=== PATIENT | male | born 1990 | race Hispanic/Latino ===

== ENCOUNTER 2019-09-04 11:31 | Inpatient (IN) | payer SELFPAY ==
[2019-09-04] MEDS ORDERED: ISOVUE-370 76%-LOCM 1 ML ONE (11:40)
[2019-09-04] MEDS ORDERED: Ondansetron PF 4 MG/2 ML Vial ONE (11:50)
[2019-09-04] MEDS ORDERED: Fentanyl 100 MCG/2 ML VIAL ONE ×2 (11:50→12:20)
--- NOTE | 2019-09-04 11:53 | RAD ---
EXAM: Single view of the chest HISTORY: Chest pain COMPARISON: None FINDINGS: Single view of the chest shows a normal sized cardiomediastinal silhouette. There is mild bilateral hilar fullness. There is no evidence of consolidation, mass, or pleural effusion. The bones are unremarkable. IMPRESSION: Bilateral hilar fullness may be secondary to an atypical infection or prominent pulmonary vasculature.
[2019-09-04] MEDS ORDERED: Lidocaine 1% w/Epinephrine 1:100K 20 ML VIAL ONE (11:54)
[2019-09-04 11:58] LABS: Hemoglobin 15.5 g/dL (14.0-18.0); Mean Corpuscular Hemoglobin 32.4 pg (27.0-31.0); Mean Platelet Volume 7.3 fL (7.4-10.4); Platelet Count 293 thou/uL (130-400); RBC Distribution Width 11.7 % (11.5-14.5); Red Blood Cell (RBC) Count 4.77 mill/uL (4.70-6.10); White Blood Cell (WBC) Count 32.3 thou/uL (4.8-10.8)
--- NOTE | 2019-09-04 12:01 | CT ---
EXAM: CT brain without contrast HISTORY: Fall from platform with head trauma COMPARISON: None TECHNIQUE: Multiple contiguous axial images were obtained and a CT of the brain without contrast. FINDINGS: The brain is normal in morphology and attenuation without focal lesions or confluent areas of infarction. There is no evidence of hydrocephalus, intracranial hemorrhage, or extra-axial fluid collection. The calvarium and overlying soft tissues are unremarkable. The visualized paranasal sinuses and masto id air cells are well aerated. IMPRESSION: No evidence of acute intracranial abnormality Dr. Rivera notified of the findings at 11:58 AM on 09/04/2019.
--- NOTE | 2019-09-04 12:03 | CT ---
EXAM: CT of the cervical spine without contrast HISTORY: Neck pain after falling from a platform. COMPARISON: None TECHNIQUE: Multiple contiguous axial images were obtained in a CT of the cervical spine without contr ast. Sagittal and coronal reformats were performed. FINDINGS: The vertebral bodies and intervertebral discs demonstrate normal height and alignment witho ut fracture or subluxation. No degenerative changes are present. No prevertebral soft tissue swelling is seen. The posterior facets are well aligned. Normal alignment of the skull base with the cervical spine is seen. The lung apices and cervical soft tissues are unremarkable. IMPRESSION: No evidence of acute osseous abnormality of the cervical spine. Dr. Rivera notified of findings at 11:59 AM on 09/04/2019.
[2019-09-04 12:20] LABS: INR-International Normal Ratio 1.1; PTT 28.1 SEC (22.9-36.1)
[2019-09-04 12:21] LABS: ALT (SGPT) 29 U/L (8-55); AST (SGOT) 49 U/L (5-34); Albumin 4.6 g/dL (3.5-5.0); Alcohol Less than 10 mg/dL (Less than 10); Alkaline Phosphatase 81 U/L (40-110); Anion Gap 17 mmol/L (10-20); BUN (Urea Nitrogen) 12 mg/dL (8.9-20.6); Band 18 % (5-11); Bilirubin, Total 0.3 mg/dL (0.2-1.2); Calc. Creatinine Clearance 0 mL/min (70-130); Calcium 9.3 mg/dL (7.8-10.44); Carbon Dioxide 19 mmol/L (22-29); Chloride 105 mmol/L (98-107); Estimated GFR-MDRD Greater than 90; Glucose 140 mg/dL (70-105); Lipase 8 U/L (8-78); Lymphocytes 5 % (21-51); MDiff Complete? YES; Monocytes 5 % (0-10); Neutrophil 72 % (42-75); Platelet Morphology Comment Appears Adequate; Potassium 4.1 mmol/L (3.5-5.1); Protein, Total 7.6 g/dL (6.0-8.3); Sodium 137 mmol/L (136-145)
--- NOTE | 2019-09-04 12:37 | RAD ---
XR Chest 1 View Portable HISTORY: Pneumothorax, chest tube placement COMPARISON: Earlier exam of 11:43 AM from same date FINDINGS: There is been interval placement of a left-sided chest tube with resolution of the left pne umothorax noted on the earlier exam
[2019-09-04] MEDS ORDERED: Ketorolac Tromethamine 30 MG/ML VIAL ONE (12:39)
--- NOTE | 2019-09-04 13:16 | CT ---
CT FACIAL BONES WITH CORONAL AND SAGITTAL REFORMATIONS: Date: 09/04/19 HISTORY: Injury, facial pain. FINDINGS: The facial bones are intact. No temporomandibular dislocation is seen. The paranasal sinuses and mast oid air cells are well aerated. No air fluid levels are seen. IMPRESSION: No CT evidence of facial bone fracture. Discussed over the telephone with ER physician, Dr. Yani Rivera, at 1206 hours. CODE CR. POS: [facility]
--- NOTE | 2019-09-04 13:23 | CT ---
CT CHEST WITH IV CONTRAST CT ABDOMEN WITH IV CONTRAST CT PELVIS WITH IV CONTRAST CORONAL AND SAGITTAL REFORMATIONS OF THORACOLUMBAR SPINE: Date: 09/04/19 HISTORY: Fall from 20-ft. Low back pain, chest pain, loss of consciousness. FINDINGS: No mediastinal hematoma or intimal flap in the aorta is seen to suggest transection. There is a large left pneumothorax. Patchy areas of consolidation consistent with pulmonary contusions are seen in th e lung carlson bilaterally. There are fractures involving the left 4th, 5th, and 6th ribs. The liver, spleen, pancreas, adrenal glands, and kidneys are normal. No free air is seen. There is a small amount of free fluid in the pelvis. A 15 mm cortical cyst is seen in the anterior right renal c ortex. Nonobstructing tiny bilateral renal calculi are present. Gallbladder is present. Urinary bladd er is well distended. Bowel injury cannot be excluded due to absence of contrast. No fracture or subluxation is seen in the thoracolumbar spine. IMPRESSION: 1. Bilateral pulmonary contusions. 2. Large left pneumothorax. 3. Left rib fractures. 4. No CT evidence of solid organ injury. 5. Small amount of free fluid in the pelvis. 6. Nonobstructing renal calculi. 7. Right renal cyst. Report called over the telephone to ER physician, Dr. Yani Rivera, at 1219 hours. CODE CR. POS: [facility]
--- NOTE | 2019-09-04 13:37 | HP ---
REQUESTING PHYSICIAN: Dr. Rivera. ATTENDING SURGEON: Dr. Blackwood. CONSULTATIONS: None. HISTORY OF PRESENT ILLNESS: The patient is a 29-year-old man, who was working on a scaffolding, which had a ladder on it. While he was painting, the scaffolding slipped and shifted causing the entire apparatus to fall. The patient fell approximately 20 feet. He had a reported loss of consciousness. He has no idea how long, but woke up as the ambulance was there. The patient was brought to the emergency department, where he underwent evaluation and examination as a level 2 trauma activation. He was noted to have a left-sided pneumothorax. The patient would have a chest tube placed in the emergency department. He also underwent CT scanning, which showed left ribs 4, 5 and 6 fractures and a small amount of free fluid in his pelvis, at which time we were asked to evaluate the patient for admission. ALLERGIES: NONE. CURRENT MEDICATIONS: None. PAST MEDICAL HISTORY: None. PAST SURGICAL HISTORY: None. SOCIAL HISTORY: The patient drinks occasionally. Denies tobacco use. Smokes marijuana on occasion. 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 REVIEW OF SYSTEMS: 10-point review of systems is negative as otherwise stated. PHYSICAL EXAMINATION: VITAL SIGNS: Blood pressure 128/80, heart rate 86, respirations 20, oxygen saturation is 100% on 2 L via nasal cannula, and temperature is 98.5. GENERAL: The patient is resting comfortably in the ER bed. He has just undergone his chest tube placement. He is awake, alert, and oriented x3. [place] Coma Scale is 15. HEENT. Head is normocephalic and atraumatic. Eyes, extraocular motion intact. PERRLA bilaterally. Ears are atraumatic without discharge. Nose, no external signs of trauma. The patient does have crusted blood in both nares. Oropharynx is clear. NECK: Nontender. Trachea is midline. No JVD. CHEST: Clear to auscultation with moderate inspiratory and expiratory effort. The patient states that is limited by pain. Left chest tube is in place. Appears to be functioning. There is no gross air leak in the chamber. ABDOMEN: Soft, flat, nontender with active bowel sounds. PELVIS: Stable. EXTREMITIES: Neurovascularly intact x4. The patient has a small contusion noted on his left elbow. LABORATORY FINDINGS: White blood cell count 32.3, hemoglobin 15.5, hematocrit 46.5, and platelets 293. Sodium 137, potassium 4.1, chloride 105, CO2 of 19, BUN 12, creatinine 0.87, and glucose 140. LFTs are unremarkable. Lipase 8. Lactic acid 1.9. PT 14, INR 1.1, and PTT 28. Blood alcohol is less than 10. RADIOGRAPHIC REPORTS: AP chest x-ray shows a left pneumothorax. CT of the brain without contrast. CT of the C-spine without contrast shows no acute abnormalities. CT of the chest, abdomen, and pelvis shows a large left pneumothorax and fractures of ribs 4, 5, and 6 on the left, and small amount of free fluid is noted in the pelvis. CT of the facial bones without contrast shows no acute findings. ASSESSMENT: 1. Status post fall from approximately 20 feet, level 2 trauma activation. 2. Concussion, current GCS 15. 3. Large left pneumothorax, status post left chest tube placement. 4. Left ribs 4, 5, and 6 fracture. 5. Small amount of free fluid noted in the pelvis. 6. Leukocytosis, likely reactive. 7. Acute pain secondary to above. PLAN: Plan will be to admit the patient to the surgical floor. We will have his chest tube to suction overnight and repeat his chest x-ray in the morning. The patient will have pain control, pulmonary toilet, gastritis and mechanical VTE prophylaxis, repeat his labs in the morning, and serial exams of his abdomen. The evaluation, examination, laboratory, and radiographic findings were discussed with Dr. Blackwood prior to this dictation. Job ID: [id number]
[2019-09-04] MEDS ORDERED: traMADol HCl 50 MG TAB PO PRN (15:21)
[2019-09-04] MEDS ORDERED: Promethazine HCl 25 MG/ML VIAL IM PRN ×2 (15:21)
[2019-09-04] MEDS ORDERED: Dextrose 5% in Water 1,000 ML IV PRN (15:21)
[2019-09-04] MEDS ORDERED: Ondansetron PF 4 MG/2 ML Vial IVP PRN (15:21)
[2019-09-04] MEDS ORDERED: Cyclobenzaprine 10 MG TAB PO PRN (15:21)
[2019-09-04] MEDS ORDERED: Morphine 2 MG/ML SYRINGE SLOW IVP PRN (15:21)
[2019-09-04] MEDS ORDERED: hydrALAZINE 20 MG/ML VIAL SLOW IVP PRN (15:21)
[2019-09-04] MEDS ORDERED: Ondansetron ODT 4 MG TAB PO PRN (15:21)
[2019-09-04] MEDS ORDERED: Dextrose 50% Abboject 50 ML SYRINGE SLOW IVP PRN (15:21)
[2019-09-04 15:27] VITALS: BMI 19.6
[2019-09-04] MEDS: Sodium Chloride 0.9% 1,000 ML IV SCH ×2 (17:31→23:28)
[2019-09-04] MEDS: traMADol HCl 50 MG TAB PO SCH ×2 (17:47→23:20)
[2019-09-04] MEDS: Acetaminophen 500 MG TAB PO SCH ×2 (17:48→23:19)
[2019-09-04] MEDS: Ibuprofen 600 MG TAB PO SCH (21:07)
[2019-09-04] MEDS: Famotidine 20 MG TAB PO SCH (21:07)
--- NOTE | 2019-09-05 01:00 | PRG ---
DATE OF SERVICE: 09/04/2019 SUBJECTIVE: The patient was seen this evening lying in bed with C-collar and chest tube in place with no signs of acute distress. Pain is well controlled. OBJECTIVE: VITAL SIGNS: Temperature 98.4, pulse 84, respirations 16, oxygen saturation 100% on 2 L nasal cannula, blood pressure 126/71. GENERAL: Well-appearing young male, lying in bed with no signs of acute distress. PULMONARY: Equal chest rise and fall. Clear breath sounds bilaterally. No signs of acute respiratory distress. Left-sided chest tube was in place to wall suction. ABDOMEN: Soft, nontender, nondistended. EXTREMITIES: 2+ pulses in all extremities. Gross motor and sensation are intact. NEUROLOGIC: GCS is 15. ASSESSMENT: 1. Status post fall from 20 feet with positive loss of consciousness. 2. Left-sided pneumothorax, status post left-sided chest tube. 3. Left ribs 4 through 6 fracture. 4. Bilateral pulmonary contusions. 5. Concussion, resolving. 6. Pelvic free fluid. PLAN: Continue patient's current diet and pain regimen. C-collar was cleared by myself and discontinued. The patient to continue use IS, ambulate, and sit up in chair as much as possible. We will repeat a chest x-ray in the morning for re-evaluation of a pneumothorax and repeat blood work. Job ID: [id number]
[2019-09-05 05:04] LABS: #Basophils 0.1 thou/uL (0.0-0.2); #Eosinphils 0.2 thou/uL (0.0-0.7); #Lymphocytes 1.8 thou/uL (1.20-3.40); #Monocytes 1.2 thou/uL (0.11-0.59); #Neutrophils 10.1 thou/uL (1.40-6.50); %Basophils 0.5 % (0.0-1.0); %Eosinophils 1.3 % (0.0-10.0); %Lymphocytes 13.6 % (21.0-51.0); %Monocytes 9.2 % (0.0-10.0); %Neutrophils 75.5 % (42.0-75.0); Hemoglobin 12.3 g/dL (14.0-18.0); Mean Corpuscular HGB CONC 33.8 g/dL (32.0-36.0); Mean Corpuscular Hemoglobin 32.9 pg (27.0-31.0); Mean Corpuscular Volume 97.5 fL (78.0-98.0); Mean Platelet Volume 7.1 fL (7.4-10.4); Platelet Count 204 thou/uL (130-400); RBC Distribution Width 11.4 % (11.5-14.5); Red Blood Cell (RBC) Count 3.74 mill/uL (4.70-6.10); White Blood Cell (WBC) Count 13.4 thou/uL (4.8-10.8)
[2019-09-05 05:18] LABS: Anion Gap 11 mmol/L (10-20); BUN (Urea Nitrogen) 10 mg/dL (8.9-20.6); Calc. Creatinine Clearance 144 mL/min (70-130); Calcium 8.4 mg/dL (7.8-10.44); Carbon Dioxide 25 mmol/L (22-29); Chloride 105 mmol/L (98-107); Estimated GFR-MDRD Greater than 90; Glucose 81 mg/dL (70-105); Potassium 4.1 mmol/L (3.5-5.1); Sodium 137 mmol/L (136-145)
[2019-09-05 05:20] LABS: Phosphorus 3.7 mg/dL (2.3-4.7)
[2019-09-05] MEDS: Acetaminophen 500 MG TAB PO SCH ×3 (06:42→17:13)
[2019-09-05] MEDS: traMADol HCl 50 MG TAB PO SCH ×3 (06:43→17:13)
[2019-09-05] MEDS: Ibuprofen 600 MG TAB PO SCH ×3 (06:43→21:26)
[2019-09-05] MEDS: Famotidine 20 MG TAB PO SCH ×2 (08:52→20:29)
[2019-09-05] MEDS: Enoxaparin Sodium 40 MG/0.4 ML SYRINGE SC SCH (08:53)
--- NOTE | 2019-09-05 08:57 | RAD ---
Portable frontal chest radiograph: 09/05/2019 COMPARISON: 09/04/2019 HISTORY: Reevaluate left-sided chest tube FINDINGS: There is a stable left-sided chest tube in place. No pneumothorax is evident on this exam. No focal consolidation or alveolar edema is seen. There is mild hazy density in the bilateral perihilar regions which could signify mild perihilar airspace disease. Multiple left-sided rib fractu res noted on recent CT examination are difficult to visualize on this exam secondary to technique. IMPRESSION: Stable left chest tube.
--- NOTE | 2019-09-05 14:55 | PRG ---
DATE OF SERVICE: 09/05/2019 SUBJECTIVE: The patient is currently on the surgical floor. He is hospital day #2, status post fall from scaffolding about 20 feet. The patient sustained a fracture to left ribs 4, 5, and 6, and [id number] size left pneumothorax. This pneumothorax had a chest tube placed in the emergency department. Overnight, he has had no issues. This morning, his pain is controlled, and he is tolerating a diet. OBJECTIVE: VITAL SIGNS: Temperature 97.9, heart rate 88, blood pressure 116/67, respirations 16, oxygen saturations is 100% via 2 L nasal cannula. GENERAL: The patient is resting comfortably in bed. He is awake, alert, and oriented x3. [place] Coma Scale is 15. HEENT: Unremarkable. LUNGS: Clear to auscultation with good inspiratory and expiratory effort. The patient does have some pain along his left lateral chest wall consistent with his chest tube placement and rib fractures. HEART: Regular rate and rhythm. ABDOMEN: Soft, flat, nontender with active bowel sounds. EXTREMITIES: Neurovascular intact x4. LABORATORY FINDINGS: White blood cell count 13.4, hemoglobin 12.3, hematocrit 36.4, platelets 204. Sodium 137, potassium 4.1, chloride 105, CO2 of 25, BUN 10, creatinine 0.70, glucose 81, magnesium 2.0, phosphorus 3.7. RADIOGRAPHS: AP chest x-ray shows a stable left-sided chest tube. No pneumothorax is evident. ASSESSMENT: 1. Status post fall from scaffolding approximately 20 feet. 2. Left rib fractures 4, 5, and 6. 3. Left pneumothorax, treated with chest tube. 4. Concussion, resolved. 5. Leukocytosis, improved. 6. Acute pain secondary to trauma, improved. PLAN: Plan will be to continue supportive care. Encourage out of bed, physical and occupational therapy, pain control, pulmonary toilet. Place his chest tube to water seal and repeat chest x-ray in the morning. Job ID: [id number]
[2019-09-06] MEDS: traMADol HCl 50 MG TAB PO SCH ×5 (00:30→23:42)
[2019-09-06] MEDS: Acetaminophen 500 MG TAB PO SCH ×5 (00:30→23:43)
--- NOTE | 2019-09-06 02:00 | PRG ---
DATE OF SERVICE: 09/06/2019 SUBJECTIVE: The patient was seen this evening during rounds, resting comfortably and asleep. He had no acute distress at the time of my evaluation. Nursing reported no acute events. OBJECTIVE: VITAL SIGNS: Temperature 98.3, pulse 85, respirations 16, oxygen saturation 97% on room air, blood pressure 117/71. ASSESSMENT: 1. Status post fall from scaffolding. 2. about 20 feet. 3. Left-sided ribs 4 through 6 fracture. 4. Left pneumothorax, status post chest tube. 5. Concussion, resolved. 6. Acute traumatic pain, improving. PLAN: Continue current diet and pain regimen. Continue chest tube to water seal. Repeat chest x-ray in the morning. The patient will likely be able to be discharged home once his pneumothorax is resolved. Job ID: [id number]
[2019-09-06] MEDS: Ibuprofen 600 MG TAB PO SCH ×3 (05:39→21:06)
[2019-09-06] MEDS: Enoxaparin Sodium 40 MG/0.4 ML SYRINGE SC SCH (08:32)
[2019-09-06] MEDS: Famotidine 20 MG TAB PO SCH ×2 (08:32→21:07)
--- NOTE | 2019-09-06 10:56 | RAD ---
PORTABLE CHEST 1 VIEW: Date: 09/06/19 Time: 0446 hours HISTORY: Follow-up pneumothorax. FINDINGS: Comparison made with exam from previous day. Left-sided chest tube remains in place. A tiny left apical pneumothorax is present. The heart size is normal. The right lung is clear. IMPRESSION: Tiny left pneumothorax. POS: [facility]
--- NOTE | 2019-09-06 15:05 | PRG ---
DATE OF SERVICE: 09/06/2019 SUBJECTIVE: The patient is currently on the surgical floor. He is hospital day #3, status post fall from approximately 20 feet from a scaffolding. The patient sustained rib fractures to left ribs #4, #5, #6, and a left pneumothorax. The patient has a chest tube, that is in place and has been to water-seal overnight. The patient has been ambulating without assistance. He is tolerating a diet. His pain is controlled. OBJECTIVE: VITAL SIGNS: Temperature is 97.9, heart rate 85, blood pressure 115/62, respirations 18, oxygen saturation 97% on room air. GENERAL: The patient is resting comfortably in bed. He has just returned from ambulating outside of his room. HEENT: Unremarkable. LUNGS: Clear to auscultation with good inspiratory and expiratory effort. His chest tube is in place, appears to be functioning properly. There is no air leak noted. HEART: Regular rate and rhythm. ABDOMEN: Soft, flat, nontender with active bowel sounds. EXTREMITIES: Neurovascularly intact x4. LABORATORY AND DIAGNOSTIC DATA: There are no labs to review this morning. Radiographs; AP chest x-ray shows a small left pneumothorax. ASSESSMENT: 1. Status post fall from scaffolding approximately 20 feet. 2. Left ribs, 4, 5, and 6 fractures. 3. Left pneumothorax, treated with chest tube, currently on water-seal, small residual pneumothorax noted. 4. Concussion, resolved. PLAN: Plan will be to continue supportive care. Encourage out of bed and mobility. Incentive spirometry. We will keep the chest tube in place one more day. Repeat his chest x-ray in the morning and hopefully be able to discontinue his chest tube tomorrow not gotten bigger, but in hopes that is resolved. The patient may be able to be discharged within the next 24 hours. Job ID: [id number]
--- NOTE | 2019-09-06 16:09 | PRG ---
DATE OF SERVICE: 09/06/2019 SUBJECTIVE: Scott Davidson is a 29-year-old male, who has fallen from a ladder that was manual scaffolding, trying to change a light on a high ceiling. He has suffered rib fractures, has as a left chest tube and has a small pneumothorax on the left. OBJECTIVE: LUNGS: Clear to auscultation. CARDIAC: Regular rate and rhythm without murmur or gallop. ABDOMEN: Soft, nontender. VITAL SIGNS: Temperature 98.4 degrees, pulse 106, blood pressure 125/74. ASSESSMENT AND PLAN: The patient is doing well. Continue treatment. Anticipate water-sealing the chest tube soon and checking a chest x-ray. Anticipate discharge home in the next 24 to 48 hours. Job ID: [id number]
--- NOTE | 2019-09-07 02:33 | PRG ---
DATE OF SERVICE: SUBJECTIVE: Patient was seen this evening during rounds. He was resting comfortably and asleep with no signs of acute distress. Nursing reported no acute events. OBJECTIVE: VITAL SIGNS: Temperature 98.2, pulse 93, respirations 20, oxygen saturation 97% on room air, and blood pressure 106/74. GENERAL: Well-appearing young male, lying in bed with no signs of acute distress. PULMONARY: Equal chest rise and fall. No signs of acute respiratory distress. Left-sided chest tube was in place. ASSESSMENT: 1. Status post fall from scaffolding, about 20 feet. 2. Left ribs 4, 5, and 6 fractures. 3. Left pneumothorax, status post chest tube to water seal. 4. Concussion, resolved. PLAN: Continue current diet regimen and pain control. I asked patient with a small residual pneumothorax after placing the chest tube to water seal yesterday. We will continue to monitor and repeat a chest x-ray tomorrow. If it is stable, we will remove the chest tube and repeat the chest x-ray. Job ID: [id number]
[2019-09-07 05:08] LABS: #Basophils 0.1 thou/uL (0.0-0.2); #Eosinphils 0.4 thou/uL (0.0-0.7); #Lymphocytes 1.7 thou/uL (1.20-3.40); #Monocytes 1.3 thou/uL (0.11-0.59); #Neutrophils 6.8 thou/uL (1.40-6.50); %Basophils 0.7 % (0.0-1.0); %Eosinophils 4.3 % (0.0-10.0); %Lymphocytes 16.2 % (21.0-51.0); %Neutrophils 65.9 % (42.0-75.0); Hemoglobin 12.1 g/dL (14.0-18.0); Mean Corpuscular HGB CONC 33.2 g/dL (32.0-36.0); Mean Corpuscular Hemoglobin 31.9 pg (27.0-31.0); Mean Corpuscular Volume 96.1 fL (78.0-98.0); Platelet Count 224 thou/uL (130-400); RBC Distribution Width 11.3 % (11.5-14.5); Red Blood Cell (RBC) Count 3.79 mill/uL (4.70-6.10); White Blood Cell (WBC) Count 10.3 thou/uL (4.8-10.8)
[2019-09-07] MEDS: Acetaminophen 500 MG TAB PO SCH ×3 (05:45→18:22)
[2019-09-07] MEDS: Ibuprofen 600 MG TAB PO SCH ×3 (05:45→21:19)
[2019-09-07] MEDS: traMADol HCl 50 MG TAB PO SCH ×3 (05:45→18:21)
--- NOTE | 2019-09-07 07:56 | RAD ---
Portable frontal chest radiograph: 09/07/2019 COMPARISON: 09/06/2019 HISTORY: Evaluate left-sided chest tube FINDINGS: Heart and mediastinal contours are stable. Increased linear interstitial density noted bila terally with pulmonary hyperinflation. There is a left chest tube in place. There is a stable tiny pneumothorax in the left lung apex. IMPRESSION: Left chest tube with stable tiny apical pneumothorax on the left.
[2019-09-07] MEDS: Enoxaparin Sodium 40 MG/0.4 ML SYRINGE SC SCH (11:12)
--- NOTE | 2019-09-07 15:46 | PDOC.FM ---
- Subjective Subjective: Mr. Davidson was resting comfortably at the time of evaluation. He had no complaints at this time, and denied any headaches, chest pain or shortness of breath. He stated that he had been able to ambulate w/o difficulty and had no concerns about his current plan of care at this time. - Objective MAR Reviewed: Yes Vital Signs & Weight: Vital Signs (12 hours) Temp Pulse Resp BP BP Pulse Ox 09/07/19 15:07 98.1 F 92 16 130/72 98 09/07/19 12:54 94 12 09/07/19 10:57 98.2 F 93 14 119/78 98 09/07/19 08:00 100 09/07/19 07:09 100 20 100/66 100 09/07/19 07:07 90 12 09/07/19 04:15 98.2 F 86 20 120/78 99 Weight Weight 65.771 kg I&O: 09/06/19 09/07/19 09/08/19 06:59 06:59 06:59 Intake Total 720 Output Total 30 Balance 690 Result Diagrams: 09/07/19 04:57 09/05/19 04:36 Radiology Reviewed by me: Yes (Images and reports) Phys Exam - Physical Examination Constitutional: NAD HEENT: PERRLA, moist MMs, sclera anicteric, oral pharynx no lesions Neck: no nodes, supple, full ROM Respiratory: no wheezing, no rales, no rhonchi, clear to auscultation bilateral Cardiovascular: RRR, no significant murmur, no rub Gastrointestinal: soft, non-tender, no distention, positive bowel sounds Musculoskeletal: no edema, pulses present Neurological: non-focal, moves all 4 limbs Lymphatic: no nodes Psychiatric: normal affect, A&O x 3 Skin: no rash Dx/Plan - Plan Plan: 1. Pneumothorax, Left -Sustained after mechanical fall from 10-20 FT while at work -CT Chest/ABD/Pelvis: Bilateral pulmonary contusion, large left-sided pneumothorax, multiple rib fractures (4-6) -Chest tube was placed while in ED - O2Sats improved dramatically and have remained stable since admission -Pain currently controlled with Acetaminophen 1000 mg PO Q6H and Cyclobenzaprine 10 mg PO TID PRN -Physical exam unremarkable - patient was able to ambulate and converse w/o difficulty -Chest Tube Drainage: 100 ml (Serosanguineous) since placement on 09/05 -Continue to monitor vital signs and manage accordingly 2. Multiple Rib Fractures -Sustained after mechanical fall from 10-20 FT while at work -CT Chest/ABD/Pelvis: Bilateral pulmonary contusion, large left-sided pneumothorax, multiple rib fractures (4-6) -Surgical intervention not required at this time - Flail Chest unlikely -Pain currently controlled with Acetaminophen 1000 mg PO Q6H and Cyclobenzaprine 10 mg PO TID PRN -Physical exam unremarkable - patient was able to ambulate and converse w/o difficulty -Patient is at risk of developing atelectasis -Ensure continued mobilization, incentive spirometry and adequate pain control -Continue to manage medically Dispo: Patient appears stable on Surgical Floor. Pain is well-controlled and patient has been ambulating and conversing w/o difficulty. Plan to remove chest tube later this PM and monitor clinically. Plan for repeat CXR on 09/08 to evaluate for resolution of pneumothorax. Expected LOS < 24H Note: Dr. Thompson was present during the evaluation of this patient and is in agreement with the plan as stated above.
[2019-09-07] MEDS: Senokot S 8.6-50 MG TAB PO SCH (21:19)
[2019-09-08] MEDS: traMADol HCl 50 MG TAB PO SCH ×3 (00:25→12:14)
[2019-09-08] MEDS: Acetaminophen 500 MG TAB PO SCH ×3 (00:25→12:15)
--- NOTE | 2019-09-08 02:11 | PRG ---
DATE OF SERVICE: 09/08/2019 SUBJECTIVE: The patient was seen this evening, lying in bed, sitting up with no signs of acute distress. He reported pain is well controlled. Left-sided chest tube was removed today. Denies shortness of breath. OBJECTIVE: VITAL SIGNS: Temperature 97.7, pulse 96, respirations 16, oxygen saturation 97% on room air, blood pressure 101/71. GENERAL: Well-appearing young male, sitting up in bed with no signs of acute distress. PULMONARY: Equal chest rise and fall. No signs of acute respiratory distress. ASSESSMENT: 1. Status post fall from 20 feet. 2. Concussion, resolved. 3. Left-sided ribs 4 through 6 fractures. 4. Left-sided pneumothorax, status post chest tube. PLAN: Continue current diet and pain med regimen. Chest tube was discontinued earlier today. We will repeat a chest x-ray later this morning and if the pneumothorax is stable or resolved, the patient will be discharged later today. Job ID: [id number]
[2019-09-08] MEDS: Ibuprofen 600 MG TAB PO SCH ×2 (06:03→17:39)
--- NOTE | 2019-09-08 06:33 | PDOC.FM ---
- Objective Vital Signs & Weight: Vital Signs (12 hours) Temp Pulse Resp BP Pulse Ox 09/08/19 00:10 97.7 F 96 16 101/71 97 09/07/19 20:04 94 L 09/07/19 20:00 97.9 F 93 18 126/72 94 L 09/07/19 19:56 94 L 09/07/19 19:55 94 L Weight Weight 65.771 kg I&O: 09/06/19 09/07/19 09/08/19 06:59 06:59 06:59 Intake Total 720 1200 Output Total 30 Balance 690 1200 Result Diagrams: 09/07/19 04:57 09/05/19 04:36 Dx/Plan - Plan Plan: 1. Pneumothorax, Left -Sustained after mechanical fall off a ladder from a height of 10-20 FT while at work -CT Chest/ABD/Pelvis: Bilateral pulmonary contusion, large left-sided pneumothorax, multiple rib fractures (4-6) -Chest tube was placed while in ED - O2Sats improved dramatically and have remained stable since admission -Pain currently controlled with Acetaminophen 1000 mg PO Q6H and Cyclobenzaprine 10 mg PO TID PRN -Physical exam unremarkable - patient was able to ambulate and converse w/o difficulty -Chest Tube: DC'd on 09/08 -Repeat CXR: Pending -Continue to monitor vital signs and manage accordingly 2. Multiple Rib Fractures -Sustained after mechanical fall off a ladder from a height of 10-20 FT while at work -CT Chest/ABD/Pelvis: Bilateral pulmonary contusion, large left-sided pneumothorax, multiple rib fractures (4-6) -Surgical intervention not required at this time - Flail Chest unlikely -Pain currently controlled with Acetaminophen 1000 mg PO Q6H and Cyclobenzaprine 10 mg PO TID PRN -Physical exam unremarkable - patient was able to ambulate and converse w/o difficulty -Patient is at risk of developing atelectasis during hospital stay -Ensure continued mobilization, incentive spirometry and adequate pain control -Continue to manage medically Dispo: Patient appears stable on Surgical Floor. Pain is well-controlled and patient has been ambulating and conversing w/o difficulty. Await results of repeat CXR to evaluate for resolution of pneumothorax and plan for DC. Expected LOS < 12H Note: Dr. Thompson was present during the evaluation of this patient and is in agreement with the plan as stated above.
[2019-09-08] MEDS: Senokot S 8.6-50 MG TAB PO SCH (08:22)
[2019-09-08] MEDS: Enoxaparin Sodium 40 MG/0.4 ML SYRINGE SC SCH (08:22)
[2019-09-08] MEDS ORDERED: Polyethylene Glycol 3350 17 GM Packet PO SCH (09:00)
--- NOTE | 2019-09-08 10:15 | RAD ---
EXAM: Chest PA and lateral: HISTORY: Follow up pneumothorax. Chest tube removal. COMPARISON: 09/07/2019 FINDINGS: Interval removal of a left-sided chest tube. Heart: Normal cardiac silhouette Aorta: Unremarkable Pulmonary vessels: Normal Costophrenic angles: Costophrenic angles are clear. Lungs: No consolidation or masses. Pneumothorax: Trace left-sided pneumothorax Osseous structures: No osseous abnormalities IMPRESSION: Interval normal left-sided chest tube. Trace left-sided pneumothorax.
[2019-09-08 11:27] VITALS: BP 133/88; TEMP 98.2
--- NOTE | 2019-09-09 04:31 | DIS ---
DATE OF ADMISSION: 09/04/2019 DATE OF DISCHARGE: 09/08/2019 RESIDENT: Yfn Chicas MD ADMITTING ATTENDING: Nicanor Hair PA-C, trauma services. DISCHARGE ATTENDING: Chung Thompson DO, trauma services. CONSULTS: None. PROCEDURES: Multiple chest x-rays revealing resolution of a large left-sided pneumothorax. CT chest, abdomen and pelvis with contrast indicating bilateral pulmonary contusions, a large left-sided pneumothorax, left rib fractures, no CT evidence of solid organ injury, small amount of free fluid in the pelvis, nonobstructive renal calculi as well as a right renal cyst. CT of the facial bones, which revealed no evidence of facial bone fracture. Brain CT scan revealing no evidence of acute intracranial abnormality. Chest tube placement, left side. PRIMARY DIAGNOSIS: Traumatic fall resulting in bilateral lung contusions and left-sided pneumothorax as well as 3 broken ribs. SECONDARY DIAGNOSIS: None. DISCHARGE MEDICATIONS: None. DISCONTINUED MEDICATIONS: 1. Acetaminophen 1000 mg p.o. q.6 hours. 2. Albuterol/ipratropium 3 mL t.i.d. 3. Cyclobenzaprine 10 mg p.o. t.i.d. 4. Lovenox 40 mg subcutaneous daily. 5. Ibuprofen 600 mg p.o. q.8 hours. 6. MiraLAX 17 g p.o. daily. 7. Senokot S 2 tabs p.o. b.i.d. 8. Tramadol 50 mg p.o. q.6 hours. HISTORY OF PRESENT ILLNESS/HOSPITAL COURSE: Mr. Davidson is a 29-year-old male who presented to the ED following a fall off a ladder while at work. He estimated that he was about 15-20 feet in the air prior to falling. On presentation to the ED, multiple imaging reports revealed that he had bilateral lung contusions and a left-sided pneumothorax that ultimately would require chest tube placement as well as fractures of the left ribs 4-6. Chest tube was placed and pain was adequately controlled with the aforementioned medication regimen. Appropriate aeration of the lungs was achieved. Breathing treatments were scheduled daily and ambulation was encouraged. Chest tube was removed on 09/07/2019, and a repeat chest x-ray revealed no evidence of increasing pneumothorax. In fact, the pneumothorax had decreased in size greatly from the initial image on presentation. The patient's health improved greatly during his hospital stay. He was able to ambulate and converse without difficulty and his pain was adequately controlled. On discharge, his vital signs were recorded as temperature 98.2, pulse 98, blood pressure 133/ 88, respirations per minute 16, O2 saturation 96% on room air. Laboratory values revealed a WBC count of 10.3, hemoglobin 12.1, hematocrit 36.4, platelets 224. PT 14, aPTT 28.1, INR 1.1. Chem panel revealed a sodium of 137, potassium 4.1, chloride 105, carbon dioxide 25, BUN 10, creatinine 0.7, glucose 81, lactic acid 1.9, calcium 8.4, phosphorus 3.7, magnesium 2. DISPOSITION: Stable. DISCHARGE INSTRUCTIONS: Location: Home. Diet: Heart healthy. Activity: No lifting greater than 20 pounds. Followup: The patient was encouraged to follow up with Dr. Chung Thompson in clinic in 2 weeks. Prior to presentation to clinic, he was also advised to obtain a repeat chest x-ray to ensure adequate resolution of his left-sided pneumothorax. The patient was seen multiple times by Dr. Chung Thompson and he agreed with this plan and discharge summary. Job ID: [id number] [facility]
--- NOTE | 2019-09-09 07:30 | PRG ---
DATE OF SERVICE: 09/08/2019 Progress Note for Mr. Zack Davidson Subjective: Mr. Davidson is a 29-year-old male, who is being currently followed by the Trauma Team after he fell off a ladder from approximately 20 feet. This resulted in bilateral lung contusions and a left-sided pneumothorax that required chest tube placement. He is currently on hospital stay day #4, status post chest tube removal day #1. He had no complaints at the time of evaluation and stated that he felt well throughout the night with no acute overnight events such as chest pain, shortness of breath, abdominal pain, nausea, vomiting, or diarrhea. Objective: Vitals: temperature of 97.9, heart rate of 96, blood pressure of 101/71, respiratory rate of 16, O2 of 97% on room air. HENT: Normocephalic and atraumatic. Eyes demonstrated PERRLA w/ EOMI bilaterally CV: RRR w/o murmurs, clicks, gallops or rubs. +2 pulses at Radial and Doralis Pedis Arteries. Resp: CTAB x7 w/o wheezes, rales or rhonchi ABD: Flat abdomen w/ NBS x4. No TTP, guarding, rigidity, or rebound tenderness. MSK: FROM w/ appropriate coordination and strength x4. Repeat CXR: Reduction in size of left-sided pneumothorax. Assessment: 29 y/o male s/p traumatic fall that resulted in a left-sided pneumothorax that was treated via chest tube placement. Plan: DC patient this afternoon with planned f/u in clinic in 2 weeks. Ensure that CXR is obtained prior to appointment in order to document adequate resolution of aforementioned pneumothorax. Note: This patient was evaluated by Dr. Chung Thompson and he is in agreement for the aforementioned assessment and plan. Job ID: [id number] [facility]
== END 2019-09-08 15:26 | disposition home or self-care (01) | DRG 200 ==
LOC: ERS 11:31 → SJJU 15:00
PROVIDERS: ADMIT Specialist; ATTEND Specialist
PROC: 0W9B30Z Drainage of Left Pleural Cavity with Drainage Device, Percutaneous Approach (ICD-10-PCS; principal; 2019-09-04)
DX: S27.0XXA Traumatic pneumothorax, initial encounter (principal); S06.0X9A Concussion with loss of consciousness of unspecified duration, initial encounter; S22.42XA Multiple fractures of ribs, left side, initial encounter for closed fracture; S27.322A Contusion of lung, bilateral, initial encounter; W11.XXXA Fall on and from ladder, initial encounter; D72.829 Elevated white blood cell count, unspecified; R40.2412 Glasgow coma scale score 13-15, at arrival to emergency department; Y93.89 Activity, other specified
CPT/HCPCS: 32551; 36415; 70450; 70486; 71045; 71046; 71260; 72125; 74177; 80048; 80053; 80307; 83605; 83690; 83735; 84100; 85025; 85610; 85730; 93005; 94640; 96361; 96374; 96375; G0390; J1650; J1885; J2405; J3010; J7620; Q9966